=== PATIENT | female | born 1970 | race African-American/Black ===

== ENCOUNTER 2017-06-23 23:27 | Emergency (ER) | payer SELFPAY ==
[~2017-06-23] VITALS: Ht 165.1 cm; Wt 73.0 kg
[2017-06-24] MEDS ORDERED: IBUPROFEN 800MG TABLET PO ONE
[2017-06-24] MEDS ORDERED: DEXAMETHASONE 10 MG/ML VIAL IM SCH
[2017-06-24 00:11] VITALS: BP 132/84
== END 2017-06-24 00:50 | disposition home or self-care (01) ==
LOC: ER 23:27
DX: L03.113 Cellulitis of right upper limb (principal); R03.0 Elevated blood-pressure reading, without diagnosis of hypertension; F12.90 Cannabis use, unspecified, uncomplicated
CPT/HCPCS: 81025; 96372; 99283; J1100; Z7610